=== PATIENT | female | born 1975 | race Asian ===

== ENCOUNTER 2021-02-21 04:46 | Day surgery (SDC) | payer BC, OTHER ==
[2021-02-15 15:14] VITALS: BMI 29.2
[2021-02-21] MEDS ORDERED: SUCCINYLCHOLINE CHLORIDE 200 MG/10 ML SYRINGE ONE (12:01)
[2021-02-21] MEDS ORDERED: MIDAZOLAM HCL 2 MG/2 ML SINGLE DOSE VIAL ONE (12:01)
[2021-02-21] MEDS ORDERED: PROPOFOL 20 ML ONE ×2 (12:01)
[2021-02-21] MEDS ORDERED: oxyCODONE HCL 5 MG TABLET PO PRN (12:07)
[2021-02-21] MEDS ORDERED: ONDANSETRON 4 MG/2 ML VIAL IVPUSH PRN (12:07)
[2021-02-21] MEDS ORDERED: LACTATED RINGERS SOLUTION 1,000 ML IV SCH (12:15)
[2021-02-21] MEDS ORDERED: DEXAMETHASONE SOD PHOSPHATE 4 MG/1 ML VIAL ONE (12:47)
[2021-02-21] MEDS ORDERED: ACETAMINOPHEN 325 MG TABLET (FP) ONE (14:42)
[2021-02-21] MEDS ORDERED: ACETAMINOPHEN 325 MG TABLET (FP) PO ONE (15:30)
[2021-02-21 15:35] VITALS: TEMP 98.7
[2021-02-21 16:20] VITALS: BP 136/72; PULSE 86
== END 2021-02-21 16:30 | disposition home or self-care (01) ==
LOC: JASU-SURG 04:46
PROVIDERS: ATTEND Urology
PROC: 0T7D8ZZ Dilation of Urethra, Via Natural or Artificial Opening Endoscopic (ICD-10-PCS; principal; 2021-02-21 11:30)
DX: N35.92 Unspecified urethral stricture, female (principal); N31.9 Neuromuscular dysfunction of bladder, unspecified
CPT/HCPCS: 81025; 94760